=== PATIENT | female | born 1955 | race Caucasian/White ===

== ENCOUNTER → 2022-05-23 10:12 | Outpatient (CLI) | payer MEDICARE, OTHER, SELFPAY ==
[2022-05-23 11:30] LABS: COVID19 -Nasal RAPID Negative (Negative)
== END ==
PROVIDERS: PCP Family Medicine Adult Medicine; Referring Provider Orthopaedic Surgery; Visit Provider Orthopaedic Surgery
DX: Z20.822 Contact with and (suspected) exposure to COVID-19 (principal)
CPT/HCPCS: 87635; C9803

== ENCOUNTER 2022-05-24 08:53 | Day surgery (SDC) | payer MEDICARE, OTHER, SELFPAY ==
[2022-05-10 13:42] VITALS: BMI 29.5
[2022-05-24] VITALS (14 sets, daily range): BP systolic 117–146; BP diastolic 63–91; PULSE 82–105; RESP 11–20; TEMP 36.1–37.3; O2SAT 94–100; BMI 29.5
[2022-05-24] MEDS: LACTATED RINGERS 1,000 ML 84 ML IV (09:45)
[2022-05-24] MEDS: ACETAMINOPHEN 325 MG TABLET 975 MG PO (09:57)
[2022-05-24] MEDS: CELECOXIB 200 MG CAPSULE PO (09:58)
[2022-05-24] MEDS: VANCOMYCIN 1,000 MG/200 ML PIGGYBACK 200 MG IV (10:18)
--- NOTE | 2022-05-24 10:47 | PM.PREOP ---
Pre-operative Note COVID-19 COVID-19 status: Negative Interval Note History & Physical reviewed/Exam performed by Physician: Yes Changes to H&P: No
--- NOTE | 2022-05-24 10:48 | PM.OP.1 ---
Operative Date/Time/Diagnoses Date of procedure: 05/24/22 Time of procedure: 11:30 Pre-op diagnosis: right knee OA Post-op diagnosis: same Procedure & Clinicians Procedure: right total knee Same procedure as scheduled: Yes Indications: The patient has had progressively worsening right knee pain with radiographic changes consistent with arthritis. Non-operative management has failed and the patient has requested total knee replacement. The risks, benefits and alternatives to surgery were discussed with the patient prior to proceeding. Risks discussed included, but were not limited to, failure to relieve pain, stiffness, infection, nerve damage, deep venous thrombosis, pulmonary embolism, stroke, coma, heart attack, permanent paralysis and , as well as the potential need for eventual revision of the prosthetic. Surgeon: Aurora Reddy Oil Process Stillman: Jennifer Monroy Anesthesia Type: General and Spinal Operative Notes Findings: Severe right knee osteoarthritis, acceptable stability Closure Type: primary Specimen(s): none sent Prosthetic devices, grafts, tissues, transplants, or devices: Reddy and nephew size 5 femur, [facility] is 2 size 4 tibia, +10 poly, 32 x 7.5 mm patella Estimated Blood Loss (mL): 250 Blood products transfused: none Tourniquet time (min): 72 Procedure in detail: The patient was seen in the pre-operative area, where the patient identified the right knee as the operative site and this was marked with my initials. The patient received pre-operative antibiotics, and was taken to the operating room and placed on the operative table in the supine position. After satisfactory anesthesia, a maritime officer out was performed. The right leg was encircled with a tourniquet about the proximal thigh, and the leg was prepared from the toes to the tourniquet with ChloroPrep in the usual fashion and draped through sterile drapes. The leg was elevated and exsanguinated with Eschmark bandage and the tourniquet inflated to [250] mmHg pressure. The knee was approached through an approximately 18 cm incision centered over the patella and carried into the knee through a medial parapatellar arthrotomy. A portion of the medial and lateral meniscus was resected. Soft tissue was carefully mobilized around the patella the patella was measured with a caliper. Bone was resected from the patella and the patellar height was reconstituted with up an appropriate sized patellar component. A cover was then placed on the patella. A small amount of additional medial and lateral meniscus was resected. The distal femur was cut at 5?. A [+2] cut was used. It looked like an appropriate distal femoral cut and the cut was made without difficulty. An extramedullary guide was used for the tibial cut. 10 mm was resected off the least affected side.The tibia was prepared. The rotation was assessed. The patient was placed in extension residual medial and lateral meniscus as well as any residual bone was carefully resected. [No] additional tibia was resected. Hemostasis was achieved especially posteriorly. Additional local was injected into the posterior capsule. The extension gap was assessed and additional releases for gap balancing were performed as necessary. It was checked with the gap physician practice coordinator. The femoral component was trial was placed and the notch was finished. The rotation was assessed and the appropriate size femoral guide was placed on the distal femur and finishing cuts were made. There was no evidence of notching. The anterior, posterior and chamfer cuts were then made. The posterior osteophytes and soft tissues were then removed. The posterior capsule was injected with part of a mixture of 60 ml 0.25% Marcaine mixed with 20 ml Exparel for post operative pain control. The remainder of this mixture was injected into the capsule and subcutaneous tissues during cement curing. The tibial and femoral components were then placed and the knee placed through a range of motion. Range of motion was [0-130], with good stability throughout the range. The trials were then removed, and the tibia was finished. The bone was prepared with pulsatile lavage, and dried with a sponge. Cement was applied and the final prosthetics placed. Excess cement was removed during and after cement curing. A brief Betadine soak was performed. After confirming there was no extruded cement posteriorly, the final tibial insert was placed. The knee was copiously irrigated and the tourniquet deflated. Hemostasis was obtained with the Bovie cautery. A drain was placed and brought out superolaterally. The capsule was closed with interrupted nonabsorbable suture. The subcutaneous layer was closed with barbed sutures, and the skin with a running 3-0 V-Lock suture and Surgical glue. An Aquacel Ag dressing was applied and the patient was taken to recovery having tolerated the procedure well. Complications: none Post-operative Condition: stable Disposition: observation Plan for aftercare: The patient will be maintained on a standard total knee replacement protocol with weight bearing as tolerated. The patient will receive aspirin and sequential compression devices for DVT prophylaxis. The patient will be discharged home when safe for the home environment.
--- NOTE | 2022-05-24 11:00 | DI.RAD.S_ITS ---
PROCEDURE: XR KNEE RT 1TO2V INDICATIONS: TKA TECHNIQUE: 2 view(s) of the knee acquired. COMPARISON: None. FINDINGS: Bones: Patient is status post knee joint arthroplasty. Hardware components are in expected positions. Visualized bony structures are intact. Soft tissues: Overlying postoperative changes are noted. IMPRESSION: Postop changes from right total knee arthroplasty with anatomic right knee alignment. Dictated by: Tonny Davenport M.D. on 05/24/2022 at 14:28 Approved by: Tonny Davenport M.D. on 05/24/2022 at 14:28
[2022-05-24] MEDS: CARBIDOPA-LEVODOPA 25/100 TABLET 1.5 EACH PO ×3 (11:15→20:53)
[2022-05-24] MEDS: CEFAZOLIN 2 GM/100 ML PREMIX 100 ML IV ×2 (11:30→19:13)
[2022-05-24] MEDS: TRANEXAMIC ACID 1,000 MG VIAL 2000 MG INJ ×2 (11:48→13:05)
[2022-05-24] MEDS: BUPIVACAINE 0.25% (PF) 60 ML, EPINEPHrine 0.3 MG INJ (11:55)
[2022-05-24] MEDS: BUPIVACAINE LIPOSOME 266 MG/20 ML VIAL INJ (11:56)
--- NOTE | 2022-05-24 12:01 | SUR.OPER ---
Supine on padded OR bed. Pillow under head, arms secured on padded armboards <90 degree abduction. Safety belt across torso. Non-operative leg secured with tape over blanket over lower leg. Operative leg secured in DeMayo/Campos/Nathe positioner. Foam padded brace at thigh of operative leg.
[2022-05-24] MEDS: fentaNYL 100 MCG/2 ML INJ IV ×2 (13:58→14:03)
[2022-05-24] MEDS: ONDANSETRON 4 MG/2 ML INJ IV (14:00)
[2022-05-24] MEDS: HYDROMORPHONE 2 MG INJ IV (14:14)
--- NOTE | 2022-05-24 14:27 | SUR.PHASEI ---
Spoke with Dr Head. Pt recieved Acetaminophen pre-op. PACU oral pain med changed to Oxycodone.
--- NOTE | 2022-05-24 14:51 | SUR.PHASEI ---
Pt transferred to floor by Paulette Oliva in bed. Pt awake, alert on room air. Pt transfered with own bag, 1 belongings bag and cane.
[2022-05-24] MEDS: LACTATED RINGERS 1,000 ML 100 ML IV (16:01)
[2022-05-24] MEDS: OXYCODONE IR 10 MG TABLET PO ×2 (16:06→19:12)
[2022-05-24] MEDS: ACETAMINOPHEN 325 MG TABLET 650 MG PO (18:01)
--- NOTE | 2022-05-24 19:28 | PC.NURSE ---
Patient alert and oriented, pleasant and talkative. VSS. Right knee with aquacel dressing and dora wrap in place remain CDI. Up to BSC with 1 PA and walker to urinate. IV fluids infusing as ordered. Tolerating meals. States pain is managed well and tolerable with oxycodone as ordered prn. Call light withinre ach.
[2022-05-24] MEDS: ASPIRIN EC 81 MG TABLET PO (20:48)
[2022-05-24] MEDS: DOCUSATE 100 MG CAPSULE PO (20:48)
[2022-05-24] MEDS: OLANZapine 2.5 MG TABLET 15 MG PO (20:49)
[2022-05-24] MEDS: ATORVASTATIN 20 MG TABLET 5 MG PO (20:49)
[2022-05-24] MEDS: HYDROMORPHONE 0.5 MG INJ IV (21:58)
[2022-05-24] MEDS: OXYCODONE IR 5 MG TABLET PO (23:20)
[2022-05-25] VITALS: BP 113/59; PULSE 83; RESP 16; TEMP 36.4; O2SAT 95
[2022-05-25 04:00] VITALS: BP 130/77; PULSE 75; RESP 18; TEMP 36.4; O2SAT 99
[2022-05-25] MEDS: OXYCODONE IR 10 MG TABLET PO ×3 (04:07→13:15)
[2022-05-25] MEDS: CEFAZOLIN 2 GM/100 ML PREMIX 100 ML IV (04:07)
[2022-05-25 06:14] LABS: Hematocrit 35.7 % (36-46); Hemoglobin 11.8 g/dL (12.0-16.0)
[2022-05-25] MEDS: ACETAMINOPHEN 325 MG TABLET 650 MG PO ×2 (06:28→11:18)
[2022-05-25] MEDS: LEVOTHYROXINE 137 MCG TABLET PO (06:28)
[2022-05-25] MEDS: HYDROMORPHONE 0.5 MG INJ IV ×2 (06:29→11:18)
[2022-05-25 08:00] VITALS: BP 121/66; PULSE 78; RESP 18; TEMP 37.1; O2SAT 98
--- NOTE | 2022-05-25 08:11 | P.DS_ITS ---
History of Present Illness History of Present Illness Date Patient Seen: 05/25/22 Time Patient Seen: 08:12 Chief complaint: Right TKA *OPB* Narrative: Operative Date/Time/Diagnoses Date of procedure: 05/24/22 Time of procedure: 11:30 Pre-op diagnosis: right knee OA Post-op diagnosis: same Procedure & Clinicians Procedure: right total knee Same procedure as scheduled: Yes Indications: The patient has had progressively worsening right knee pain with radiographic changes consistent with arthritis. Non-operative management has failed and the patient has requested total knee replacement. The risks, benefits and alternatives to surgery were discussed with the patient prior to proceeding. Risks discussed included, but were not limited to, failure to relieve pain, stiffness, infection, nerve damage, deep venous thrombosis, pulmonary embolism, stroke, coma, heart attack, permanent paralysis and , as well as the poten tial need for eventual revision of the prosthetic. Surgeon: Aurora Reddy Credit Advisor: Jennifer Monroy Anesthesia Type: General and Spinal Operative Notes Findings: Severe right knee osteoarthritis, acceptable stability Closure Type: primary Specimen(s): none sent Prosthetic devices, grafts, tissues, transplants, or devices: Reddy and nephew size 5 femur, [facility] is 2 size 4 tibia, +10 poly, 32 x 7.5 mm patella Estimated Blood Loss (mL): 250 Blood products transfused: none Tourniquet time (min): 72 Discharge Providers Provider Discharge Date: 05/25/22 Primary care physician: Mei Tam MD Consults: 05/24/22 06:00 Consult to Anesthesiology Routine Comment: Consulting Provider: Anesthesiologist Reason for consultation: Regional block for post operative pain control Consult to Discharge Planning Routine Comment: Pt requests [facility] at discharge 05/24/22 09:25 Consult to Respiratory Therapy Evaluate & Treat Comment: Physician Instructions: Evaluate and treat 05/24/22 14:54 Consult to Discharge Planning Routine Comment: Consult to Physical Therapy Evaluate & Treat Comment: Physician Instructions: postop TKA protocol Consult to Respiratory Therapy Evaluate & Treat Comment: Physician Instructions: Evaluate and treat Discharge provider: Apple Kirby PA-C Summary Hospital Course Discharge Diagnosis: Right knee osteoarthritis, s/p right total knee arthroplasty Hospital Course: Ms Nieves's hospital course was unremarkable. On POD# 1, she was feeling well and wanted to go home. She was eating and voiding without difficulty and her pain was well-controlled with oral medication. She was evaluated by PT prior to discharge. Exam Vital Signs (past 8 hours): - 05/25/22 04:00 Temperature 97.6 F Pulse Rate 75 Respiratory Rate 18 Blood Pressure 130/77 Pulse Oximetry 99 Oxygen Delivery Method Room Air Oxygen Flow Rate 0 Narrative Exam Narrative: 5/5 strength in hip flexors, quadriceps, hamstrings, DF, PF, EHL on right. Sensation to light touch intact throughout RLE. Calves soft, compressible, nontender and without palpable cords or masses. Objective Labs Result Diagrams: 05/25/22 05:26 Labs: Laboratory Results - last 24 hr 05/25/22 05:26 Hgb 11.8 L Hct 35.7 L PFSH Medical History (Updated 05/17/22 @ 11:45 by Nadia De Jesus RN) Benign meningioma of brain (2016) Bipolar 1 disorder Bradycardia Breast cancer, left (02/2017) Chronic anticoagulation CKD (chronic kidney disease), stage III Easy bruisability HLD (hyperlipidemia) Hyperparathyroidism Hypothyroidism Migraine with aura Neuropathy SUE on CPAP Osteoarthritis Pacemaker Parkinson's disease (2016) Surgical History (Updated 05/10/22 @ 14:29 by Nadia De Jesus RN) History of cataract extraction History of hysterectomy Hx of bladder repair surgery Hx of cholecystectomy Hx of foot surgery Hx of hand surgery Hx of hernia repair Hx of left mastectomy (2017) Hx of tonsillectomy Social History household members: none Smoking Status: Former smoker alcohol intake: former Discharge Assessment & Plan Assessment and Plan Assessment: Right knee osteoarthritis s/p right total knee arthroplasty. Plan of Treatment: Pt has post op pain medication at home. Plavix as per preop as well as ASA 81 mg once a day x 6 weeks for VTE prophylaxis. Outpt PT, f/u in office in 2 weeks. Discharge Plan Discharge Plan Patient Disposition: Home Discharge orders & Medications Discharge Orders: Discharge (Order); Ordered 05/25/22 Ordered By: Apple Kirby Prescriptions: New aspirin 81 mg Tablet,Delayed Release (Dr/Ec) 81 mg PO DAILY Qty: 42 0RF Rx Instructions: Take one tablet daily x 6 weeks in addition to Plavix to prevent blood clots Continued levothyroxine [Synthroid] 137 mcg Tablet 137 mcg PO DAILY atorvastatin [Lipitor] 10 mg Tablet 5 mg PO DAILY clopidogrel [Plavix] 75 mg Tablet 75 mg PO DAILY olanzapine [Zyprexa] 15 mg Tablet 15 mg PO BEDTIME carbidopa-levodopa 25-100 mg Tablet 1 tab PO SEEINSTR Rx Instructions: 2 tabs qam, 1.5 tab qnoon, q1600, q2100 lamotrigine 100 mg Tablet 200 mg PO QAM ezetimibe [Zetia] 10 mg Tablet 10 mg PO DAILY gabapentin 250 mg/5 mL Solution 250 mg PO BID Rx Instructions: Pt takes 5.5ml bid Follow up/Referrals: Aurora Reddy MD [Physician] - As previously scheduled (Follow up with Dr Reddy on 06/09/2022 @ 9:30 am at [facility] office in [place].) Mei Tam MD [Primary Care Provider] - Diet/Activity/Treatments Diet: Diet as Tolerated Activity: Walk frequently! Cold/Heat Therapy: Ice to knee as needed for pain. Skin/Wound/Dressing Care Report to your healthcare provider any signs of infection, such as:: chills, fever, night sweats, unusual drainage and unusual redness Dressing: May remove RANDOLPH wrap and shower tomorrow. Leave Aquacel dressing in place until follow up in office. No bathing or otherwise soaking incision. Visit Report/Discharge Packet Instructions: DI for Knee Replacement Stand Alone Forms: Surgery Discharge Discharge Data Primary Care Provider: Mei Tam Attending Provider: Aurora Reddy
[2022-05-25] MEDS: INFLUENZA HD VACCINE 0.7 ML SYRINGE IM (08:28)
[2022-05-25] MEDS: EZETIMIBE 10 MG TABLET PO (08:32)
[2022-05-25] MEDS: lamoTRIgine 100 MG TABLET 200 MG PO (08:32)
[2022-05-25] MEDS: DOCUSATE 100 MG CAPSULE PO (08:32)
[2022-05-25] MEDS: ASPIRIN EC 81 MG TABLET PO (08:32)
[2022-05-25] MEDS: CARBIDOPA-LEVODOPA 25/100 TABLET 2 EACH PO (08:32)
[2022-05-25] MEDS: CLOPIDOGREL 75 MG TABLET PO (08:32)
--- NOTE | 2022-05-25 10:10 | PT.IIE ---
Current Diagnoses Unilateral primary osteoarthritis, right knee (05/24/22) Surgery Performed Operation Date: 05/24/22 11:15 Actual Procedures p Total Knee Arthroplasty(Right) - Aurora Reddy MD Surgical History (Last Updated 05/10/22 @ 14:29 by Nadia De Jesus, RN) History of cataract extraction History of hysterectomy Hx of bladder repair surgery Hx of cholecystectomy Hx of foot surgery Hx of hand surgery Hx of hernia repair Hx of left mastectomy (2018) Hx of tonsillectomy Medical History (Last Updated 05/17/22 @ 11:45 by Nadia De Jesus RN) Benign meningioma of brain (2016) Bipolar 1 disorder Bradycardia Breast cancer, left (02/2017) Chronic anticoagulation CKD (chronic kidney disease), stage III Easy bruisability HLD (hyperlipidemia) Hyperparathyroidism Hypothyroidism Migraine with aura Neuropathy SUE on CPAP Osteoarthritis Pacemaker Parkinson's disease (2016) Physical Therapy Inpatient Evaluation/Re-Eval M1 PT/OT-IP Prior Functional Status Start: 05/25/22 13:26 Freq: NEEDED Status: Active Protocol: Document 05/25/22 10:10 AB (Rec: 05/25/22 13:38 AB [id number]) Medical Review Prior Functional Status Medical History Reviewed Yes Communication able to make needs known Mobility and Gait pt stated that she is modified independent with all mobilities and ambulation using a 4WW and occasionally a SPC; usually uses a SPC for outdoor mobility Social History Household Members none Living Arrangements Group Home Facility Number of Stairs To Enter/Railing? pt lives at [facility] independent living pt lives on a 2nd floor apartment with an elevator to get to her floor Home Environment High Toilet,Walk in Shower,Tub /Shower Doors,Built-In Shower Seat,Elevator Home Equipment Front Wheel Walker,Four Wheel Walker,Hand Held Shower,Grab Bars Near Toilet,Grab Bars In Shower Additional Social History Comment pt has a walk in tub shower pt stated that she has access for a manual w/c where she lives M2 PT-IP Current Condition Start: 05/25/22 13:26 Freq: NEEDED Status: Active Protocol: Document 05/25/22 10:10 AB (Rec: 05/25/22 13:38 AB [id number]) Physical Therapy Current Condition Current Condition Evaluation Date 05/25/22 Treatment Diagnosis s/p R TKA ; difficulty in walking Onset Date 05/24/22 M3 PT-IP Subjective Start: 05/25/22 13:26 Freq: NEEDED Status: Active Protocol: Document 05/25/22 10:10 AB (Rec: 05/25/22 13:38 AB [email or web address]) Subjective Physical Therapy Visit Type Type Initial Evaluation Visit Start Time 10:10 Visit Stop Time 10:51 Total Visit Minutes 41 Number of GRADUATION COACH Visits 0 Physical Therapy Visit Comments Patient Comments agreeable to do PT Therapy Pain Assessment Pain When Pain Assessed At Rest Pain Present Pain Present Pain Reported Location Right Knee Intensity 5 Pain Behaviors Facial Grimacing,Guarding, Wincing Pain Management Techniques Apply Cold,Distraction, Elevation,Modification of Treatment,Re-positioning, Timing of Activity with Medications M4 PT-IP Mobility and Gait Start: 05/25/22 13:26 Freq: NEEDED Status: Active Protocol: Document 05/25/22 10:10 AB (Rec: 05/25/22 13:38 [id number]) PT-Bed Mobility Assessment Supine to Sit Supine to Sit Standby Assistance Sit to Supine Sit to Supine Standby Assistance PT-Transfer Assessment Sit to and From Stand Sit to and from Stand Standby Assistance,Contact Guard Assistance,1 Person Assistance,Use of Upper Extremities Equipment Transfer Assistive Device Gait Belt,Front Wheeled Walker Orthotic/Prosthetic Devices or Brace: No Transfers Transfer Destination Bed,Chair Transfer Technique ambulated Transfer Ability Level of Assist Standby Assistance,1 Person Assistance,Use of Upper Extremities Comments Mobility Comments pt sitting on chair and agreed to do PT. completed heel slides in sitting prior to standing. completed sit to stand from chair CGA initially . instructed pt to sit back down. educated on sit<>stand techniques. pt repeated x 2 and completed SBA. pt ambulated to the EOB ~ 15 ft using FWW SBA. presents with antalgic gait. completed sit to supine SBA and max cues. educated pt on techniques and completed bed mobility again with SBA needed. pt completed sit to stand from the EOB SBA and ambulated in room using FWW ~ 30 ft SBA. pt agreed to sit on the chair. positioned on the chair. call light and table placed within reach. pt without further concerns. pt stated that HHPT has been set up for her. pt plans to use a w/c from the car to get to her room and will use a FWW in her room. pt also stated that there are staff that can assist her if needed. Gait Assessment Gait Gait Assistance Required: Standby Assistance Distance (Feet) 30 Able to Maintain Weight Bearing Status Yes During Gait Assistive Devices Assistive Device Gait Belt,Front Wheeled Walker Orthotic/Prosthetic Devices or Brace: No Gait Deviations General Gait Pattern Antalgic,Decreased Stride Length,Decreased Feet Clearance,Step-to Gait Factors Limiting Gait Function Factors Limiting Gait Function Decreased Activity Tolerance, Decreased Strength,Limited Range of Motion,Pain,Poor Balance,Poor Safety Awareness PT-Balance Assessment Sitting Balance and Reactions Static Sitting Balance Ability Normal Dynamic Sitting Balance Ability Normal Standing Balance and Reactions Static Standing Balance Ability Fair Dynamic Standing Balance Ability Fair Device Used FWW M5 PT-IP Objective Assessments Start: 05/25/22 13:26 Freq: NEEDED Status: Active Protocol: Document 05/25/22 10:10 AB (Rec: 05/25/22 13:38 AB [id number]) Orientation Orientation/Cognition Level of Alertness Alert Orientation Name,Place,Situation Language Function Ability No Deficits Noted Safety Awareness Understands Safety Issues Memory Description No Deficits Noted Gross Range of Motion Lower Extremity ROM Assessment Right Impaired Impairments R knee flexion: ~ 70 deg Strength Lower Extremity Strength Assessment Left Impaired Hip 3+/5 Knee 3+/5 Coordination Assessment Gross Coordination Gross Coordination WNL Sensation Assessment Sensation Gross Sensation WNL Muscle Tone Muscle Tone WNL Yes M6 PT-IP Treatment Start: 05/25/22 13:26 Freq: NEEDED Status: Active Protocol: Document 05/25/22 10:10 AB (Rec: 05/25/22 13:38 AB [id number]) Physical Therapy Treatment Education Education Provided Precautions,Weight Bearing Status,Post-Op Packet,Safety M7 PT-IP Assessment and Plan Start: 05/25/22 13:26 Freq: NEEDED Status: Active Protocol: Document 05/25/22 10:10 AB (Rec: 05/25/22 13:38 AB [id number]) PT Summary Assessment and Plan Potential Rehabilitation Potential Good Status of Condition at Evaluation Stable Summary Impairments Pain,ROM,Strength,Balance, Coordination,Sensation,Tone, Cognition,Bed Mobility, Transfers,Gait,Activity Tolerance Assessment Summary pt requiring SBA with mobility using FWW. Pt lives alone but stated that there are staff members at her independent living home to assist her if needed. pt also stated that home health PT has been set up. Pt may go home when medically stable. Goals Bed Mobility Goal Independent Transfer Goal Independent,Front Wheeled Walker Gait Goal Independent,Front Wheel Walker Gait Distance 200 Days to Meet Goals 5 Frequency of Treatment Frequency Of Treatment Twice a Day Treatment Plan Physical Therapy Treatment Plan Bed Mobility Training,Transfer Training,Gait Training, Therapeutic Exercise,Balance Retraining,Post Op Education, Discharge Planning,Hot or Cold Pack,Neuromuscular Re-ed, Coordination Retraining,Manual Therapy Weight Bearing Status Weight Bearing Status Weight Bear as Tolerated Allowed Weight Bearing Amount (enter % RLE WBAT or #) (%) Recommendations To Nursing Amount of Assist Needed 1 Person Assist Discharge Recommendations PT Discharge Recommendations Home with Assistance,Home Health Transportation Needs at Discharge Private Vehicle
--- NOTE | 2022-05-25 11:01 | CM.IDA ---
DCP Assessment Patient is 66 y/o female who presents to post right knee arthoplasty. Patient's PCP is Dr. Cedeño, Patient has Medicare and [employer] insurance. Patient has hx of CKD, Parkinson's Disease, Breast Cancer, HLD, Hyperthyroidism and Bipolar 1 Disorder. SUPERVISOR WIRE ROPE FABRICATION and DCP Cata RN enter room to meet with patient. Patient presents as A/Ox3. Patient endorses she resides alone at a [facility] apartment facility in [place]. It is reported that they serve patient 2 meals a day and some housekeeping. Patient endorses independence with ADLs at baseline. Patient endorses she has a shower bench and recently got a FWW. Patient endorses she has supportive neighbors and friends that will check in on her regularly. Patient endorses her daughter resides in [place] and will fish bait picker patient upon d/c to home. Per H&P and patient, patient endorses preference for [facility] for PT. Patient endorses she believes the referral has been submitted already by surgeon. DCP calls [facility] and leaves requesting if F2F is needed for patient and endorses that patient will d/c home today. PT pending to evaluate patient. Plan: Patient to d/c to home today after PT evaluation with [facility] referral. Daughter to fish bait picker patient upon d/c home. [facility] Discharge Planning/Care Management Advanced directive, confirm from FAMILY Start: 05/24/22 16:34 Freq: Q24H Status: Active Protocol: Document 05/24/22 16:34 CLP (Rec: 05/24/22 16:46 CLP [id number]) Advance Directive, confirm on record Time 14:55 Person contacted patient Copy received No CM Discharge Assessment Start: 05/25/22 10:54 Freq: Status: Active Protocol: Document 05/25/22 10:55 LN (Rec: 05/25/22 11:00 LN [id number]) Discharge Planning Assessment Assigned Waiter/Waitress Take Out KARLA Davis Advance Directives? Yes: POL Advance Directives on File No History Provided By Patient Has Patient been admitted in last 30 No days? Prior Living Arrangements Assisted Facility Comment Patient resides at [facility] in [place]. Household Members none Type of transporation used prior to Drives own vehicle admit Facility Name Admitted From: [facility] Willing to Return to Facility? Yes Independent with ADL's Yes Is patient alert and oriented? Yes Patient/Family Preference Home with Home Health Comment Patient has preference for [facility] per H&P. Comment Daughter will fish bait picker patient upon d/c Discharge Plan Home Referrals Initiated Home Health SNF/HH Preference [facility] Please Provide Date Initial DC 05/25/22 Assessment Was Performed
[2022-05-25] MEDS: CARBIDOPA-LEVODOPA 25/100 TABLET 1.5 EACH PO (11:17)
--- NOTE | 2022-05-25 11:54 | CM.DPC ---
DCP Cont: Called [facility], spoke to Julianna in the intake department, and confirmed that [facility] is already ordered with P.T. They do not need a face to face. Faxed over the DC Summary and face sheet, and let her know that patient is discharging today. P: Patient is discharging home today. Saskia Browne RN/Public Housing Manager
--- NOTE | 2022-05-25 13:17 | PC.NURSE ---
Day shift: Paperwork signed and all questions answered. RANDOLPH and Aquacel remain CDI. CMS intact. VS WNL. Pt has all personal belongings. Pt also has MD scripts and said she had the script for PO Oxy at home and it just needed to be filled at pharmacy. Left unit via WC at approx 1315 and taken to car (Pt's Daughter is driving her home) by CELINE Morrow. Medicated for pain per SEP just prior to d/c.
== END 2022-05-25 13:19 | disposition home or self-care (01) ==
LOC: OR 08:54 → AC 08:55
PROVIDERS: PCP Family Medicine Adult Medicine; Referring Provider Orthopaedic Surgery; Visit Provider Orthopaedic Surgery
PROC: 0SRC0JZ Replacement of Right Knee Joint with Synthetic Substitute, Open Approach (ICD-10-PCS; CPT 27447; principal; 2022-05-24 11:15)
DX: M17.11 Unilateral primary osteoarthritis, right knee (principal); Z95.0 Presence of cardiac pacemaker; G20 Parkinson's disease; N18.30 Chronic kidney disease, stage 3 unspecified; G47.33 Obstructive sleep apnea (adult) (pediatric); Z23 Encounter for immunization
CPT/HCPCS: 27447; 36415; 73560; 85014; 85018; 90471; 90662; 97161; 97530; C1776; C1713; C9290; J0171; J0690; J1100; J1170; J2250; J2405; J2704; J3010